=== PATIENT | male | born 1985 | race African-American/Black ===

== ENCOUNTER 2017-01-21 21:43 | Emergency (ER) | payer OTHER | END 2017-01-21 22:26 | disposition left against medical advice (07) | LOC: ED 21:43 | DX: Z53.21 Procedure and treatment not carried out due to patient leaving prior to being seen by health care provider (principal) ==

== ENCOUNTER 2017-01-21 23:33 | Emergency (ER) | payer OTHER ==
[2017-01-22 01:00] VITALS: BP 108/71
== END 2017-01-22 00:12 | disposition home or self-care (01) ==
LOC: ED 23:33
DX: N34.2 Other urethritis (principal)
CPT/HCPCS: 87491; 87591; J0696

== ENCOUNTER 2017-07-14 18:28 | Emergency (ER) | payer OTHER ==
[~2017-07-14] VITALS: Ht 180.3 cm; Wt 70.3 kg
[2017-07-14 18:35] VITALS: Ht 180.3 cm; Wt 70.3 kg
[2017-07-14 20:14] VITALS: BP 128/79
== END 2017-07-14 20:14 | disposition home or self-care (01) ==
LOC: ED 18:28
DX: R07.89 Other chest pain (principal); I50.9 Heart failure, unspecified